=== PATIENT | female | born 1945 | race Caucasian/White ===

== ENCOUNTER 2020-10-23 09:47 | Inpatient (IN) | payer MEDICARE ==
[2020-10-23] VITALS (9 sets, daily range): BP systolic 91–130; BP diastolic 34–70; PULSE 76–85; TEMP 98.2–98.9
[~2020-10-23] VITALS: Ht 165.1 cm; Wt 84.1 kg
[2020-10-23 10:19] LABS: BASO # 0.1 (0.0-0.2); BASO % 0.4 % (0.0-2.0); EOS # 0.2 (0.0-0.7); EOS % 0.8 % (0-4.0); GRAN # 17.2 (1.4-6.5); GRAN % 84.7 % (42.2-75.2); HEMATOCRIT 38.4 % (37.0-47.0); HEMOGLOBIN 11.8 g/dl (12.5-16.0); LYMPH # 1.5 (1.2-3.4); LYMPH % 7.5 % (20.0-51.0); MEAN CELL VOLUME 91 fl (80.0-100.0); MEAN CORPUSCULAR HEMOGLOBIN 28 pg (27.0-31.0); MEAN CORPUSCULAR HGB CONC 31 g/dl (33.0-37.0); MEAN PLATELET VOLUME 10.3 fl (7.4-10.4); MONO # 1.2 (0.1-0.6); MONO % 5.9 % (1.7-9.3); PLATELET COUNT 252 K/mm3 (130-400); REDCELL DISTRIBUTION WIDTH-CV 14.2 % (11.5-14.5)
[2020-10-23 10:28] LABS: ALANINE AMINOTRANSFERASE 27 U/L (4-34); ALBUMIN 3.6 gm/dL (3.5-5.0); ALKALINE PHOSPHATASE 88 U/L (50-136); ANION GAP 7 mmol/L (7-16); AST,SGOT 37 U/L (15-37); BILIRUBIN,TOTAL 0.3 mg/dL (0.0-1.0); BLOOD UREA NITROGEN 24 mg/dL (7-17); CALCIUM 8.2 mg/dL (8.4-10.2); CARBON DIOXIDE 31 mmol/L (22-30); CHLORIDE 101 mmol/L (98-107); CREATINE KINASE 43 U/L (30-135); CREATININE, serum 0.76 (0.52-1.25); GLUCOSE 179 mg/dL (74-106); POTASSIUM 3.6 mmol/L (3.4-5.0); SODIUM 139 mmol/L (137-145); TOTAL PROTEIN 6.6 gm/dL (6.4-8.2)
[2020-10-23] MEDS ORDERED: LASIX 40MG TABL40 MG PO (10:32)
[2020-10-23] MEDS ORDERED: CELEXA 20MG20 MG/TAB PO (10:32)
[2020-10-23] MEDS ORDERED: NAMENDA 10MG TA10 MG PO (10:33)
[2020-10-23] MEDS ORDERED: ARICEPT 5MG PO (10:34)
[2020-10-23] MEDS ORDERED: ZETIA 10MG TAB10 MG PO (10:34)
[2020-10-23] MEDS ORDERED: LIPITOR 40MG TA40 MG PO (10:36)
[2020-10-23] MEDS ORDERED: EPA FISH OIL1 SGL PO (10:37)
[2020-10-23] MEDS ORDERED: ACTOS 15MG TAB15 MG PO (10:37)
[2020-10-23 10:40] LABS: TROPONIN-I < 0.012 ng/mL (0.000-0.035)
[2020-10-23] MEDS ORDERED: CHOLESTOFF PO (10:40)
[2020-10-23] MEDS ORDERED: CRANBERRY500 M3 PO (10:41)
[2020-10-23] MEDS ORDERED: ALDACTONE 25MG25 M1 PO (10:41)
[2020-10-23] MEDS ORDERED: ASPIRIN 81M81 MG/TA2 PO (10:42)
[2020-10-23] MEDS ORDERED: PRILOSEC 20MG20 MG PO (10:42)
[2020-10-23] MEDS ORDERED: ANTI-DIARRHEAL2 MG PO (10:43)
[2020-10-23] MEDS ORDERED: [UNRECOGNIZED DRUG - OTHER] PO (10:44)
[2020-10-23] MEDS ORDERED: MASON NATURAL2000 IU PO (10:45)
[2020-10-23] MEDS ORDERED: OZEMPIC1 MG/0.75 SQ (10:46)
[2020-10-23] MEDS ORDERED: NYSTATIN POWDER15 GM TOP (10:47)
[2020-10-23 11:01] LABS: COLLECTION METHOD CATHETER
[2020-10-23 11:04] LABS: PH 6 (5-8); SQUAMOUS EPITHELIAL None Seen /hpf; URINE APPEARANCE Clear; URINE BACTERIA None Seen /hpf; URINE BILIRUBIN Negative (NEGATIVE); URINE BLOOD Negative (NEGATIVE); URINE COLOR Yellow; URINE GLUCOSE Negative (NEGATIVE); URINE KETONE Negative (NEGATIVE); URINE LEUKOCYTE ESTERASE Negative (NEGATIVE); URINE NITRATE Negative (NEGATIVE); URINE PROTEIN(semi-quant) Negative (NEGATIVE); URINE RBC 0-2 /hpf; URINE UROBILINOGEN >=4.0 mg/dL (NEGATIVE)
[2020-10-23 11:31] LABS: INR 1.1 (0.8-3.0)
[2020-10-23 16:41] LABS: INR 1.1 (0.8-3.0); PROTHROMBIN TIME 11.9 SECONDS (9.7-12.8)
--- NOTE | 2020-10-23 17:35 | NUR ---
Pt working on eating dinner at this time. Her sister did come to see her, but has now left. Has some complaints of pain on her left arm, she states is worse when the blood pressure is being taken
--- NOTE | 2020-10-23 21:00 | NUR ---
Patient resting in bed. Tylenol administered for pain. SCDs and Teds on bilateral extremities. Fluids infusing to right forearm. Patient on 2 L of oxygen via nasal cannula. Dressing to left hip clean, dry, and intact. Saldivar draining clear yellow urine.
--- NOTE | 2020-10-24 03:24 | NUR ---
Patient called with complaints of pain to her left hip. 5 mg oxycodone administered.
[2020-10-24 04:04] VITALS: BP 131/35; PULSE 73; TEMP 98.4
--- NOTE | 2020-10-24 05:00 | NUR ---
TAKING OVER PATIENT'S CARE, RECEIVED REPORT FROM LOLLY PIÑA.
[2020-10-24 06:44] LABS: BASO # 0.1 (0.0-0.2); BASO % 0.5 % (0.0-2.0); EOS # 0.1 (0.0-0.7); EOS % 0.9 % (0-4.0); GRAN # 7.9 (1.4-6.5); GRAN % 74.8 % (42.2-75.2); HEMATOCRIT 33.1 % (37.0-47.0); HEMOGLOBIN 9.8 g/dl (12.5-16.0); LYMPH # 1.3 (1.2-3.4); LYMPH % 11.8 % (20.0-51.0); MEAN CELL VOLUME 92 fl (80.0-100.0); MEAN CORPUSCULAR HEMOGLOBIN 27 pg (27.0-31.0); MEAN CORPUSCULAR HGB CONC 30 g/dl (33.0-37.0); MEAN PLATELET VOLUME 10.9 fl (7.4-10.4); MONO # 1.2 (0.1-0.6); MONO % 11.7 % (1.7-9.3); PLATELET COUNT 203 K/mm3 (130-400); REDCELL DISTRIBUTION WIDTH-CV 14.5 % (11.5-14.5)
[2020-10-24 07:02] LABS: CALCIUM 7.8 mg/dL (8.4-10.2); CREATININE, serum 0.68 (0.52-1.25); MAGNESIUM 1.9 mg/dL (1.6-2.3); POTASSIUM 3.7 mmol/L (3.4-5.0)
[2020-10-24 07:10] LABS: PRE ALBUMIN 16.7 mg/dL (17.6-36.0)
[2020-10-24 07:21] LABS: TSH w REFLEX 0.93 uIU/mL (0.465-4.680)
--- NOTE | 2020-10-24 08:00 | NUR ---
PATIENT IS ORIENTED X2 WITH OCCATIONAL CONFUSION/FORGETFULNESS NOTED. PATIENT KEEPS TAKING OXYGEN OFF. OXYGEN WAS 88% ON RA, PUT OXYGEN BACK ON AND EDUCATED PATIENT ABOUT 02. SATS NOW IN LOW 90'S ON 2L PER NC. ALL OTHER VSS. PATIENT COMFORTABLE AT REST AND RECEIVED PAIN MEDS FROM SLOT FLOOR SUPERVISOR. LEFT HIP DRESSING IS CD&I. TEDS & SCD'S TO BLE. POSITIVE PEDAL PULSES TO BLE. PT/OT CONSULTED. NO C/O N/V. BREAKFAST TRAY AT BEDSIDE. STUDENT NURSE WORKING WITH PATIENT TODAY, SEE CHARTING. HEAD TO TOE ASSESSMENT COMPLETE. AM MEDS GIVEN BY STUDENT. NO OTHER NEEDS. CALL LIGHT IN REACH. BED ALARM ON.
--- NOTE | 2020-10-24 10:01 | NUR ---
The patient has a history of short-term memory loss. RHONDA contacted the patient's son, Carlos (ph#[phone]), to discuss discharge plan. The patient lives alone in [place]. Carlos and the patient's sister, Alissa, also live in [place]. Carlos reports that the patient needs assistance with bathing and that she does not have any DME. He states that the patient has a home health aide/RN come in 3 times a day and they assist her with bathing. He could not recall the agencies name, but states they are from [facility]. The patient's PCP is Dr. Jesus Santos, but Carlos reports that they are in the process of getting her provider switched to Dr. Deanna Browning. She receives her medications from [facility] and Carlos reports no difficulties obtaining her meds. The patient does not have a DPOA-HC in EMR, but Carlos reports that the patient does have one completed and that he is the patient's DPOA-HC. He states that he can bring a copy up to the hospital when he comes to visit her. The patient has a hip fracture. RHONDA discussed post-acute rehab upon discharge. Carlos is agreeable to rehab and chose 1) [facility] 2) [facility] [place]. Carlos reports that he can provide transportation to [facility] tomorrow. If he cannot on Tuesday or Tuesday, he states that he will ask the patient's sister, Alissa, if she can. RHONDA contacted and faxed a referral to both facilities. Awaiting screens.
--- NOTE | 2020-10-24 13:47 | NUR ---
Roseann, at [facility], reports that they should be okay to take the patient on Tuesday. They will continue to follow her. Keya, at [facility], reports that they should also be able to take the patient Tuesday as long as they have a bed available.
--- NOTE | 2020-10-24 15:45 | NUR ---
PATIENT FOUND WITH OXYGEN OFF AGAIN. 02 SATS ARE IN UPPER 80'S ON RA. PUT OXYGEN BACK ON. SATS NOW LOW 90'S ON 2L PER NC. PATIENT RESTING WITH NO NEEDS. CALL LIGHT IN REACH. BED ALARM ON.
[2020-10-24 16:02] VITALS: BP 128/44; PULSE 84; TEMP 98.1
--- NOTE | 2020-10-24 19:22 | NUR ---
Awake, alert, oriented x 4, able to make needs known, no s/s of hypo/hyper glycemia, O2@2L per NC, short term memory loss noted as chronic, son at bedside, denies wanting to use narcotics for pain managment, will continue with tylenol as directed.
--- NOTE | 2020-10-24 19:29 | NUR ---
Awake, alert, oriented x 3, short term memory loss noted which is chronic, son at bedside, O2@2L per NC, DNR status, denies need for pain medication at this time, no s/s of hypo/hyper glycemia. Call juan w/i reach.
[2020-10-24 20:34] VITALS: BP 128/42; PULSE 92; TEMP 97.6
--- NOTE | 2020-10-24 21:28 | NUR ---
sitting up in bed, refused bedtime snack, refused aspart insulin bsl 155, repositioned in bed, 2 surgical sites to L hip with dressing c/d/i, O2@2L per NC in use.
[2020-10-24 23:37] VITALS: BP 117/50; PULSE 87; TEMP 98.3
[2020-10-25 04:07] VITALS: BP 134/42; PULSE 78; TEMP 97.9
--- NOTE | 2020-10-25 04:55 | NUR ---
Awake,alert, oriented x 3, verbal with clear speech, forgeful, denies pain, took am medication w/o difficulty, no c/o at this time.
[2020-10-25 06:34] LABS: BASO # 0.1 (0.0-0.2); BASO % 0.4 % (0.0-2.0); EOS # 0.1 (0.0-0.7); EOS % 0.7 % (0-4.0); GRAN # 9.7 (1.4-6.5); GRAN % 81.3 % (42.2-75.2); LYMPH # 0.9 (1.2-3.4); LYMPH % 7.8 % (20.0-51.0); MEAN CELL VOLUME 91 fl (80.0-100.0); MEAN CORPUSCULAR HGB CONC 30 g/dl (33.0-37.0); MEAN PLATELET VOLUME 11.1 fl (7.4-10.4); MONO # 1.1 (0.1-0.6); MONO % 9.3 % (1.7-9.3); PLATELET COUNT 184 K/mm3 (130-400); RED BLOOD COUNT 3.37 M/mm3 (4.10-5.30); REDCELL DISTRIBUTION WIDTH-CV 14.5 % (11.5-14.5)
[2020-10-25 06:36] LABS: HEMATOCRIT 30.6 % (37.0-47.0); HEMOGLOBIN 9.1 g/dl (12.5-16.0); MEAN CORPUSCULAR HEMOGLOBIN 27 pg (27.0-31.0)
[2020-10-25 06:51] LABS: CALCIUM 8.2 mg/dL (8.4-10.2); CREATININE, serum 0.64 (0.52-1.25); POTASSIUM 3.6 mmol/L (3.4-5.0)
[2020-10-25 07:46] VITALS: BP 114/30; PULSE 90; TEMP 98.1
--- NOTE | 2020-10-25 09:12 | NUR ---
Patient repostioned in bed. Alert this am. Working on breakfast tray. Reports elevated pain with movement. [place] for pain per orders. Activity encouraged as well as IS us and coughing & deep breathing. Saldivar to be DC today. Left hip dressing cDI. Scds ble. Teds off. rounded plan of care reviewed. Will contiue to monitor
--- NOTE | 2020-10-25 10:44 | NUR ---
First visit from the credit assistant. No needs right now.
[2020-10-25 11:26] VITALS: BP 134/39; PULSE 76; TEMP 98.2
--- NOTE | 2020-10-25 14:15 | NUR ---
[employer] faxed updates to [facility].
--- NOTE | 2020-10-25 14:41 | NUR ---
Patient repostioned in chair. [place] removed. Bed bath & [place]ffield cares provided. She tolerated her late lunch well. Will continue to monitor.
[2020-10-25 15:36] VITALS: BP 127/49; PULSE 77; TEMP 97.8
--- NOTE | 2020-10-25 16:22 | NUR ---
Patient max 2 assist. Return to bed. She used bedside commode & voided. Passed flatus, I offered bowel regiment, no interest at this time. Patietn offered pain medication & reports, it is not needed at this time. Will let her rest and continue to montior.
--- NOTE | 2020-10-25 18:54 | NUR ---
Patient 2 assist to bedside commode. Max assist with walker & gaitbelt. She is unable to take steps, but can bear weight. She voided. Positioned in bed. Bedside report to Thomas AMBROCIO
--- NOTE | 2020-10-25 19:45 | NUR ---
Pt. sitting up in bed. Pt. is alert and has some confusion. Shift assessment complete. INT to rt. ac patent. Dressing to lt. hip CDI. Pt. grimaces with movement. Gave pain meds per orders. Pt. denies further needs, call light within reach.
[2020-10-25 19:59] VITALS: BP 137/43; PULSE 82; TEMP 97.9
[2020-10-26] VITALS (7 sets, daily range): BP systolic 109–136; BP diastolic 30–60; PULSE 78–95; TEMP 97.6–98.2
--- NOTE | 2020-10-26 06:55 | NUR ---
Lying in bed with eyes closed. Opens eyes when name called out. Patient is alert and oriented x2, easily forgetful. Denies pain at this time. 2+ bilat lower extremity edema noted. Gauze dressings x2 to left hip and outer thigh CDI. Bottom and groin area red. Assist patient in ordering breakfast. Patient denies additional needs or concerns at this time.
--- NOTE | 2020-10-26 07:43 | NUR ---
Administer [place] as prescribed to help decrease pain while doing therapy. Patient sitting up in bed eating breakfast.
--- NOTE | 2020-10-26 09:15 | NUR ---
Bed bath provided. Patient was able to perform oral care. Reposition patient in bed. Patient says that she will take a nap at this time. Denies additional needs.
--- NOTE | 2020-10-26 11:32 | NUR ---
Patient incontinent of urine. Pericare provided, new brief applied. Patient assisted to supine position with HOB elevated to get ready to eat lunch. Ice applied to left hip. Patient denies pain at this time. Assisted patient in ordering lunch. Encourage use of IS and also perform coughing and deep breathing. Patient is on oxygen at 2L/NC. Denies additional needs at this time.
--- NOTE | 2020-10-26 12:59 | NUR ---
Patient repositioned in bed. Ice pack remains applied to left hip. Denies additional needs or concerns at this time.
--- NOTE | 2020-10-26 13:21 | NUR ---
RA SPO2 81% PLACED BACKON 2 LPM NC 90% RN NOTIFIED
--- NOTE | 2020-10-26 16:45 | NUR ---
Administer [place] per patient request for increased pain in left hip after rolling in bed. Patient wants to use the bedpan, refuses to get out of bed. Patient says that she is not able to do anything and someone would have to fully lift her to get her where she needs to go. Patient assisted to upright position in bed to get ready to eat dinner. Denies additional needs at this time.
--- NOTE | 2020-10-26 17:38 | NUR ---
Sitting up in bed watching TV. Patient would like to take off nasal cannula and use the oxymask due to nasal irritation. Oxymask applied at 2L. Patient says that her pain has decreased since getting the pain pill and she feels better. Denies additional needs at this time.
--- NOTE | 2020-10-26 19:10 | NUR ---
RECEIVED REPORT FROM FARROWING WORKER CHARGE NURSE.
--- NOTE | 2020-10-26 20:00 | NUR ---
PATIENT ORIENTED TO PERSON/. DECREASED MOVEMENT TO LLE D/T L HIP FX AND SURGICAL REPAIR OF FX. DENIES CHEST PAIN/SOA. SALINE LOCK IN PLACE. TOLERATING PO FLUIDS WITH NO PROBLEMS. SEE MAR FOR MEDS GIVEN. BED ALARM ON WHEN IN BED.
[2020-10-27 04:23] VITALS: BP 126/51; PULSE 79; TEMP 98.4
[2020-10-27 06:50] LABS: BASO # 0.1 (0.0-0.2); BASO % 0.5 % (0.0-2.0); EOS # 0.5 (0.0-0.7); EOS % 4.9 % (0-4.0); GRAN % 74.4 % (42.2-75.2); LYMPH % 10.3 % (20.0-51.0); MEAN CELL VOLUME 90 fl (80.0-100.0); MEAN CORPUSCULAR HGB CONC 31 g/dl (33.0-37.0); MEAN PLATELET VOLUME 11.2 fl (7.4-10.4); MONO # 0.9 (0.1-0.6); MONO % 9.6 % (1.7-9.3); PLATELET COUNT 193 K/mm3 (130-400); RED BLOOD COUNT 3.04 M/mm3 (4.10-5.30); REDCELL DISTRIBUTION WIDTH-CV 14.6 % (11.5-14.5)
--- NOTE | 2020-10-27 06:53 | NUR ---
CHANGE OF SHIFT REPORT GIVEN TO DAY SHIFT NURSETHU RN.
[2020-10-27 06:54] LABS: HEMATOCRIT 27.4 % (37.0-47.0); HEMOGLOBIN 8.5 g/dl (12.5-16.0); MEAN CORPUSCULAR HEMOGLOBIN 28 pg (27.0-31.0)
[2020-10-27 07:13] LABS: CREATININE, serum 0.68 (0.52-1.25); MAGNESIUM 1.8 mg/dL (1.6-2.3); POTASSIUM 3.1 mmol/L (3.4-5.0)
[2020-10-27 08:18] VITALS: BP 135/39; PULSE 77; TEMP 97.7
--- NOTE | 2020-10-27 08:35 | NUR ---
Patient up to bedside commode, 2 assist. Gaitbelt used. needed alot of instructions. She was incontinent of urine, but was able to void in commode. Patient breakfast ordered, she deneis nausea. Pain managed this am after [place] was given by priior shift. Left hip gauze dressing intact. Will monitor.
[2020-10-27] MEDS ORDERED: FERROUS SU325 MG/TAB PO (08:39)
[2020-10-27] MEDS ORDERED: IPRATROPIUM BROM3 M1 IH (08:39)
[2020-10-27] MEDS ORDERED: ASPI325T6 PO (08:40)
[2020-10-27] MEDS ORDERED: TYLENOL 325MG325 MG PO (08:41)
[2020-10-27] MEDS ORDERED: ROXICODONE 55 MG/TAB PO (08:41)
[2020-10-27] MEDS ORDERED: COLACE 100100 MG/CAP PO (08:42)
[2020-10-27] MEDS ORDERED: GOOD SENSE400 MG/5 M PO (08:42)
[2020-10-27 08:55] VITALS: BP 135/39; PULSE 77; TEMP 97.7
--- NOTE | 2020-10-27 10:07 | NUR ---
The patient is ready to d/c today. RHONDA notified Keya at [facility]. Keya reports that they should be able to take the patient this afternoon, but they will need the doc-to-doc prior to determine if they can. The accepting physician is Dr. Santos. RHONDA informed the hospitalist and provided him with Dr. Santos's phone number. The patient is also now requiring 2 liters of oxygen. Keya states that she will check with their RT to see if the family can borrow a portable tank for transportation. RHONDA contacted and updated the patient's son, Carlos. Carlos reports that his aunt, Alissa, will transport the patient today and he will update her on time to be here. RHONDA read the IM form outloud to Carlos over the phone. Carlos verbalized understanding and gave SW approval to sign the form on his behalf.
--- NOTE | 2020-10-27 11:00 | NUR ---
Patient given a shower. Shower chair used and patient pushed into bathroom & hair washed. Brandin tried to help but did exhausted easy. Patient then pushed to the sink where she was assisted with denture cares & hair combed. Brandin 2 assisted back to bed, where she is wanting to rest.
[2020-10-27 11:25] VITALS: BP 112/30; PULSE 70; TEMP 97.9
--- NOTE | 2020-10-27 11:45 | NUR ---
The doc-to-doc call was done. Keya, at [facility], reports that they are able to accept the patient today and that they can have the patient's sister sign a liability form to borrow an oxygen tank for transport. RHONDA attempted to contact the patient's son, Carlos, to update. SW left him a voicemail. SW contacted and updated the patient's sister, Alissa. Alissa was agreeable to the above plan and states that she can be up to our hospital around [id number] to brass pickler the patient. The patient is to discharge today, 10/27, to [facility]. Transportation was scheduled around [id number], via private vehicle from the patient's sister (Alissa). RHONDA notified the patient's RN and Keya at [facility] of the time. They were both agreeable to the time. No additional needs at this time.
--- NOTE | 2020-10-27 12:13 | NUR ---
Report called to nurse at [facility]. All questions answered. Patient lunch ordered. She is resting in bed. Will monitor.
--- NOTE | 2020-10-27 14:10 | NUR ---
Patient did well with lunch. [place] for pain. Patient up to bedside commode & voided. Patient dressed in clothing. With therapy help patient loaded into car. Patient sister taking her to [place] [facility].
== END 2020-10-27 14:13 | disposition swing bed (61) | DRG 482 ==
LOC: COL.ER 09:47 → SURG 11:53
PROVIDERS: Emergency Medicine; Orthopaedic Surgery; Physician Assistant; ADMIT Internal Medicine
PROC: 0QS736Z Reposition Left Upper Femur with Intramedullary Internal Fixation Device, Percutaneous Approach (ICD-10-PCS; principal; 2020-10-23 13:00)
DX: S72.142A Displaced intertrochanteric fracture of left femur, initial encounter for closed fracture (principal); E11.9 Type 2 diabetes mellitus without complications; E03.9 Hypothyroidism, unspecified; R41.3 Other amnesia; K21.9 Gastro-esophageal reflux disease without esophagitis; E78.00 Pure hypercholesterolemia, unspecified; J43.9 Emphysema, unspecified; D64.9 Anemia, unspecified; Z66 Do not resuscitate; D72.829 Elevated white blood cell count, unspecified; R09.02 Hypoxemia; Z90.710 Acquired absence of both cervix and uterus; Z79.82 Long term (current) use of aspirin; Z79.84 Long term (current) use of oral hypoglycemic drugs; Z87.891 Personal history of nicotine dependence; Z90.49 Acquired absence of other specified parts of digestive tract; W19.XXXA Unspecified fall, initial encounter
CPT/HCPCS: 99223-AI; 99232-AI; 99239; A9284; C1713; C1769; J0295; J0690; J2250; J2270; J2370; J2405; J2704; J3010; J7030